=== PATIENT | female | born 1930 | race Caucasian/White ===

== ENCOUNTER 2017-08-15 16:51 | Emergency (ER) | payer MEDICARE, BC, MEDICAID ==
[2017-08-15 17:40] VITALS: BP 123/90
[2017-08-15] MEDS ORDERED: Amoxicillin/Clavulanate K 875-125 MG Tab PO ONE (18:09)
--- NOTE | 2017-08-15 18:17 | EDM.PDOC ---
Scribed by Estefania Reza 08/15/17 [id number] for Jasvir Bradley MD ED HPI GENERAL MEDICAL PROBLEM - General Chief Complaint: ENT Problem Stated Complaint: [id number] FLU Time Seen by Provider: 08/15/17 17:28 Source of Information: Reports: Patient, RN, RN Notes Reviewed History Limitations: Reports: No Limitations - History of Present Illness INITIAL COMMENTS - FREE TEXT/NARRATIVE: Patient arrives to ER with complaint of sore throat on and off for several weeks. She denies any cough or fever. She was worried because her son and [id number] had the flu, but she does not feel that she has the same symptoms. Location: Reports: Head Quality: Reports: Ache Severity: Mild Improves with: Reports: None Worsens with: Reports: None Associated Symptoms: Reports: No Other Symptoms - Related Data Allergies Allergy/AdvReac Type Severity Reaction Status Date / Time No Known Allergies Allergy Verified 07/06/16 13:28 Home Meds: Home Meds Albuterol [Proair HFA] 1 puff INH BID 09/27/14 [History] Aspirin [Elizabeth Chewable Aspirin] 81 mg PO DAILY 09/27/14 [History] Budesonide/Formoterol Fumarate [Symbicort 80-4.5 Mcg Inhaler] 1 puff INH BID [History] Citalopram [Citalopram HBr] 20 mg PO DAILY 09/27/14 [History] Levothyroxine [Synthroid] 100 mcg PO DAILY 09/27/14 [History] Simvastatin [Simvastatin] 40 mg PO DAILY 09/27/14 [History] Multivitamin [Multi-Day Vitamins] 1 tab PO DAILY 03/15/15 [History] Allergy Medication DAILY 08/15/17 [History] Past Medical History HEENT History: Reports: Impaired Vision Other HEENT History: wears corrective lenses Cardiovascular History: Reports: High Cholesterol Respiratory History: Reports: COPD Psychiatric History: Reports: Anxiety Endocrine/Metabolic History: Reports: Hypothyroidism Oncologic (Cancer) History: Reports: None - Infectious Disease History Infectious Disease History: Reports: Measles, Mumps - Past Surgical History HEENT Surgical History: Reports: Eye Surgery Other HEENT Surgeries/Procedures: patient does not know name of procedure Female Surgical History: Reports: Hysterectomy Social & Family History - Family History Family Medical History: Noncontributory - Tobacco Use Smoking Status *Q: Former Smoker Years of Tobacco use: 15 Packs/Tins Daily: 1 Used Tobacco, but Quit: No Month Tobacco Last Used: june Second Hand Smoke Exposure: No - Caffeine Use Caffeine Use: Reports: Coffee - Alcohol Use Days Per Week of Alcohol Use: 0 - Recreational Drug Use Recreational Drug Use: No ED ROS ENT - Review of Systems Review Of Systems: ROS reveals no pertinent complaints other than HPI. ED EXAM, ENT - Physical Exam Exam: See Below Exam Limited By: No Limitations General Appearance: Alert, WD/WN, No Apparent Distress Eye Exam: Bilateral Eye: Normal Inspection Ears: Normal Canal, Hearing Loss (chronic/wears hearing aids.), TM Fluid (clear air fluid level bilaterally.) Nose: No Blood, Nasal Discharge (purulent), Injected Turbinates Mouth/Throat: Pharyngeal Erythema (mild.), Other (creamy post nasal drip.) Head: Atraumatic, Normocephalic Neck: Normal Inspection Respiratory/Chest: No Respiratory Distress, No Accessory Muscle Use, Decreased Breath Sounds. No: Rales, Rhonchi, Wheezing Cardiovascular: Regular Rate, Rhythm, No Edema Back: Normal Inspection Extremities: Normal Inspection Neurological: Alert, Oriented, No Motor/Sensory Deficits Psychiatric: Anxious Skin: Warm, Dry, Intact, Normal Color, No Rash Course - Vital Signs Last Recorded V/S: Last Vital Signs Temp 36.8 C 08/15/17 17:06 Pulse 74 08/15/17 17:06 Resp 18 08/15/17 17:06 BP 123/90 08/15/17 17:06 Pulse Ox 97 08/15/17 17:06 - Orders/Labs/Meds Orders: Active Orders 24 hr Category Date Time Status CULTURE STREP A CONFIRMATION [RM] Stat Lab 08/15/17 17:10 Results STREP SCRN A RAPID W CULT CONF [RM] Stat Lab 08/15/17 17:10 Results Labs: Rapid strep: Negative. Meds: Medications Discontinued Medications Generic Name Dose Route Start Last Admin Trade Name Freq PRN Reason Stop Dose Admin Amoxicillin/Clavulanate Potassium 1 tab 08/15/17 18:09 08/15/17 18:13 Augmentin 875 Mg/125 Mg PO 08/15/17 18:10 1 tab ONETIME ONE Administration Departure - Departure Time of Disposition: 18:08 Disposition: Home, Self-Care 01 Condition: Good Clinical Impression: Sinusitis Qualifiers: Sinusitis location: unspecified location Chronicity: acute Recurrence: non- recurrent Qualified Code(s): J01.90 - Acute sinusitis, unspecified - Discharge Information Instructions: Sinusitis, Adult, [id number] Forms: ED Department Discharge Additional Instructions: RX: Augmentin 875mg. Frequent salt water gargles. Follow up in the clinic in the next 3 to 4 days. - My Orders Last 24 Hours: My Active Orders 08/15/17 17:10 CULTURE STREP A CONFIRMATION [RM] Stat STREP SCRN A RAPID W CULT CONF [RM] Stat - Assessment/Plan Last 24 Hours: My Active Orders 08/15/17 17:10 CULTURE STREP A CONFIRMATION [RM] Stat STREP SCRN A RAPID W CULT CONF [RM] Stat I have read and agree with the documentation that has been completed regarding this visit. By signing this record, I attest that the documentation was completed in my physical presence and is an accurate record of the encounter.
== END 2017-08-15 18:19 | disposition home or self-care (01) ==
LOC: DL.ED 16:51
DX: J01.90 Acute sinusitis, unspecified (principal); E78.00 Pure hypercholesterolemia, unspecified; E03.9 Hypothyroidism, unspecified; F41.9 Anxiety disorder, unspecified; Z79.899 Other long term (current) drug therapy; Z87.891 Personal history of nicotine dependence; Z79.82 Long term (current) use of aspirin
CPT/HCPCS: 87081; 87430; 99283; A9270

== ENCOUNTER 2018-02-07 10:39 | Observation (INO) | payer MEDICARE, BC, MEDICAID ==
--- NOTE | 2018-02-07 10:38 | EDM.PDOC ---
ED HPI GENERAL MEDICAL PROBLEM - General Chief Complaint: Neuro Symptoms/Deficits Stated Complaint: IN BY AMBULANCE Time Seen by Provider: 02/07/18 10:33 Source of Information: Reports: Patient, EMS, Family (son), Old Records, RN, RN Notes Reviewed History Limitations: Reports: No Limitations - History of Present Illness INITIAL COMMENTS - FREE TEXT/NARRATIVE: Pt arrives from home by ambulance with report of "possible stroke". Pt awoke this morning feeling well. Just prior to arrival while talking on the phone to her son, she suddenly developed speech that was "slurred and garbled". The pt states she knew something was wrong, but was sure what. Pt's son states he immediately recognized the speech change, and called 911. Paramedics report that prior to arrival to the ER the pt's speech returned to normal. Pt denies any motor weakness, visual changes, difficulty swallowing, LOC, CP, or loss of bowel or bladder control. Onset: Today, Sudden Onset Date: 02/07/18 (Last known well time was approx. 10:00HRS this morning) Duration: Resolved Prior to Arrival Location: Reports: Other (speech) Severity: Severe Improves with: Reports: None Worsens with: Reports: None Associated Symptoms: Reports: No Other Symptoms - Related Data Allergies Allergy/AdvReac Type Severity Reaction Status Date / Time No Known Allergies Allergy Verified 02/07/18 11:18 Home Meds: Home Meds Albuterol [Proair HFA] 1 puff INH BID 09/27/14 [History] Aspirin [Elizabeth Chewable Aspirin] 81 mg PO DAILY 09/27/14 [History] Budesonide/Formoterol Fumarate [Symbicort 80-4.5 Mcg Inhaler] 1 puff INH BID [History] Citalopram [Citalopram HBr] 20 mg PO DAILY 09/27/14 [History] Levothyroxine [Synthroid] 100 mcg PO DAILY 09/27/14 [History] Simvastatin 40 mg PO DAILY 09/27/14 [History] Multivitamin [Multi-Day Vitamins] 1 tab PO DAILY 03/15/15 [History] Allergy Medication DAILY 08/15/17 [History] Past Medical History HEENT History: Reports: Impaired Vision Other HEENT History: wears corrective lenses Cardiovascular History: Reports: High Cholesterol Respiratory History: Reports: COPD Psychiatric History: Reports: Anxiety Endocrine/Metabolic History: Reports: Hypothyroidism Oncologic (Cancer) History: Reports: None - Infectious Disease History Infectious Disease History: Reports: Measles, Mumps - Past Surgical History HEENT Surgical History: Reports: Eye Surgery Other HEENT Surgeries/Procedures: patient does not know name of procedure Female Surgical History: Reports: Hysterectomy Social & Family History - Family History Family Medical History: Noncontributory - Caffeine Use Caffeine Use: Reports: Coffee - Living Situation & Occupation Living situation: Reports: , Alone Occupation: Retired ED ROS GENERAL - Review of Systems Review Of Systems: ROS reveals no pertinent complaints other than HPI. ED EXAM, NEURO - Physical Exam Exam: See Below Exam Limited By: No Limitations General Appearance: Alert, WD/WN, No Apparent Distress Eye Exam: Bilateral Eye: EOMI, Normal Inspection, PERRL Ears: Hearing Loss (chronic/stable) Nose: Normal Inspection, Normal Mucosa, No Blood Throat/Mouth: Normal Inspection, Normal Lips, Normal Teeth, Normal Gums, Normal Oropharynx, Normal Voice, No Airway Compromise Head Exam: Atraumatic, Normocephalic Neck: Normal Inspection, Supple, Non-Tender, Full Range of Motion. No: Carotid Bruit, Lymphadenopathy (L), Lymphadenopathy (R) Respiratory/Chest: No Respiratory Distress, Lungs Clear, Normal Breath Sounds, No Accessory Muscle Use, Chest Non-Tender Cardiovascular: Normal Peripheral Pulses, Regular Rate, Rhythm, No Edema, No Gallop, No JVD, No Murmur, No Rub GI/Abdominal: Normal Bowel Sounds, Soft, Non-Tender, No Distention. No: Guarding, Rigid, Rebound (Female) Exam: Deferred Rectal (Female) Exam: Deferred Neurological: Alert, Normal Mood/Affect, Normal Dorsiflexion, CN II-XII Intact, Normal Plantar Flexion, Normal Gait, No Motor/Sensory Deficits, Oriented x 3 Back Exam: Normal Inspection Extremities: Normal Inspection, Normal Range of Motion, Non-Tender, No Pedal Edema, Normal Capillary Refill Psychiatric: Anxious Skin Exam: Warm, Dry, Intact, Normal Color, No Rash EKG INTERPRETATION EKG Date: 02/07/18 Time: 10:44 Rhythm: Other (SR) Rate (Beats/Min): 70 [place]: Normal P-Wave: Present QRS: Wide (nonspecific IVCD) ST-T: Normal QT: Normal Comparison: NA - No Prior EKG EKG Interpretation Comments: No acute ischemic changes. Course - Vital Signs Last Recorded V/S: Last Vital Signs Temp 36.6 C 02/07/18 10:39 Pulse 79 02/07/18 10:39 Resp 15 02/07/18 10:39 BP 178/69 H 02/07/18 10:39 Pulse Ox 100 02/07/18 10:39 - Orders/Labs/Meds Orders: Active Orders 24 hr Category Date Time Status Blood Glucose Check, Bedside [] ONETIME Care 02/07/18 10:40 Active EKG 12 Lead [EKG Documentation Completion] [RC] STAT Care 02/07/18 10:39 Active Peripheral IV Care [RC] . DIRECTED Care 02/07/18 10:40 Active TSH ULTRASENSITIVE [CHEM] Stat Lab 02/07/18 10:33 Received UA W/MICROSCOPIC [URIN] Stat Lab 02/07/18 10:39 Ordered Sodium Chloride 0.9% [Saline Flush] Med 02/07/18 10:40 Active 10 ml FLUSH ASDIRECTED PRN Peripheral IV Insertion Adult [OM.PC] Stat Oth 02/07/18 10:39 Ordered Medication Orders Sodium Chloride (Saline Flush) 10 ml FLUSH ASDIRECTED PRN PRN Reason: Keep Vein Open Last Admin: 02/07/18 10:35 Dose: 10 ml Labs: Laboratory Tests 02/07/18 02/07/18 02/07/18 Range/Units 10:33 10:33 10:33 WBC 5.4 (5.0-10.0) 10^3/uL RBC 3.99 L (4.2-5.4) 10^6/uL Hgb 12.7 (12.0-16.0) g/dL Hct 38.3 (37.0-47.0) % MCV 96.0 D (80-100) fL MCH 31.8 (27.0-34.0) pg MCHC 33.2 (33.0-35.0) g/dL Plt Count 205 (150-450) 10^3/uL Neut % (Auto) 47.0 (42.2-75.2) % Lymph % (Auto) 40.7 (20.5-50.1) % [place] % (Auto) 9.9 H (2-8) % Eos % (Auto) 1.8 (1.0-3.0) % Baso % (Auto) 0.6 (0.0-1.0) % PT 9.2 (9.0-12.0) SEC INR 0.9 (0.9-1.2) APTT 23.0 (22.0-34.0) SEC Sodium 135 (135-145) mmol/L Potassium 3.8 (3.6-5.0) mmol/L Chloride 99 L (101-111) mmol/L Carbon Dioxide 26.0 (21.0-31.0) mmol/L Anion Gap 13.8 BUN 26 H (7-18) mg/dL Creatinine 1.1 (0.6-1.3) mg/dL Est Cr Clr Drug Dosing 31.81 mL/min Estimated GFR (MDRD) 47 BUN/Creatinine Ratio 23.63 Glucose 100 (74-105) mg/dL POC Glucose (83-110) mg/dl Calcium 8.9 (8.4-10.2) mg/dl Magnesium 2.1 (1.8-2.5) mg/dL Total Bilirubin 1.0 (0.2-1.0) mg/dL AST 23 (10-42) IU/L ALT 14 (10-60) IU/L Alkaline Phosphatase 65 (42-121) IU/L Troponin I < 0.02 (0.00-0.02) ng/ml Total Protein 7.6 (6.7-8.2) g/dl Albumin 4.2 (3.2-5.5) g/dl Globulin 3.4 Albumin/Globulin Ratio 1.24 02/07/18 Range/Units 10:46 WBC (5.0-10.0) 10^3/uL RBC (4.2-5.4) 10^6/uL Hgb (12.0-16.0) g/dL Hct (37.0-47.0) % MCV (80-100) fL MCH (27.0-34.0) pg MCHC (33.0-35.0) g/dL Plt Count (150-450) 10^3/uL Neut % (Auto) (42.2-75.2) % Lymph % (Auto) (20.5-50.1) % [place] % (Auto) (2-8) % Eos % (Auto) (1.0-3.0) % Baso % (Auto) (0.0-1.0) % PT (9.0-12.0) SEC INR (0.9-1.2) APTT (22.0-34.0) SEC Sodium (135-145) mmol/L Potassium (3.6-5.0) mmol/L Chloride (101-111) mmol/L Carbon Dioxide (21.0-31.0) mmol/L Anion Gap BUN (7-18) mg/dL Creatinine (0.6-1.3) mg/dL Est Cr Clr Drug Dosing mL/min Estimated GFR (MDRD) BUN/Creatinine Ratio Glucose (74-105) mg/dL POC Glucose 100 (83-110) mg/dl Calcium (8.4-10.2) mg/dl Magnesium (1.8-2.5) mg/dL Total Bilirubin (0.2-1.0) mg/dL AST (10-42) IU/L ALT (10-60) IU/L Alkaline Phosphatase (42-121) IU/L Troponin I (0.00-0.02) ng/ml Total Protein (6.7-8.2) g/dl Albumin (3.2-5.5) g/dl Globulin Albumin/Globulin Ratio Meds: Medications Generic Name Dose Route Start Last Admin Trade Name Freq PRN Reason Stop Dose Admin Sodium Chloride 10 ml 02/07/18 10:40 02/07/18 10:35 Saline Flush FLUSH 10 ml ASDIRECTED PRN Administration Keep Vein Open Discontinued Medications Generic Name Dose Route Start Last Admin Trade Name Freq PRN Reason Stop Dose Admin Aspirin 324 mg 02/07/18 10:55 02/07/18 11:20 Aspirin PO 02/07/18 10:56 324 mg ONETIME ONE Administration - Radiology Interpretation Free Text/Narrative:: CT Head w/out contrast: no I.C. hemorrhage, no acute findings, chronic/stable appearing microvascular changes per Rad. report. Departure - Departure Time of Disposition: 11:42 (admitted to Dr. Serrato) Disposition: Admitted As Inpatient 65 Condition: Fair Clinical Impression: Transient ischemic attack (TIA) - Discharge Information Forms: ED Department Discharge - My Orders Last 24 Hours: My Active Orders 02/07/18 10:33 TSH ULTRASENSITIVE [CHEM] Stat 02/07/18 10:39 EKG 12 Lead [EKG Documentation Completion] [RC] STAT UA W/MICROSCOPIC [URIN] Stat Peripheral IV Insertion Adult [OM.PC] Stat 02/07/18 10:40 Blood Glucose Check, Bedside [RC] ONETIME Peripheral IV Care [RC] . DIRECTED Sodium Chloride 0.9% [Saline Flush] 10 ml FLUSH ASDIRECTED PRN - Assessment/Plan Last 24 Hours: My Active Orders 02/07/18 10:33 TSH ULTRASENSITIVE [CHEM] Stat 02/07/18 10:39 EKG 12 Lead [EKG Documentation Completion] [RC] STAT UA W/MICROSCOPIC [URIN] Stat Peripheral IV Insertion Adult [OM.PC] Stat 02/07/18 10:40 Blood Glucose Check, Bedside [RC] ONETIME Peripheral IV Care [RC] . DIRECTED Sodium Chloride 0.9% [Saline Flush] 10 ml FLUSH ASDIRECTED PRN
[2018-02-07] MEDS ORDERED: Sodium Chloride 0.9% 10 ML Syringe FLUSH PRN ×2 (10:40→12:48)
[2018-02-07] MEDS ORDERED: Aspirin 81 MG Tab.Chew PO ONE (10:55)
--- NOTE | 2018-02-07 11:14 | CT ---
CLINICAL HISTORY: 87-year-old female with slurred speech (sudden onset "word salad" for 15-20 minutes ) that has resolved. SCAN TECHNIQUE: Volume acquisition of data from an emergency unenhanced CT scan of the head and brain obtained while the patient was lying supine on the Siemens multislice CT scanner [place], [place]. (This report dictated and sent to the emergency department at 1050 hour s) All data archived in the PACS system for storage, reformatting and study. INTERPRETATION: 1. 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 2. Symmetric mild age-appropriate atrophy with underlying mirror-image normal ventricular system. Phy siologic midline pineal and symmetric choroid plexus calcifications. 3. Multiple small areas of decreased attenuation scattered throughout the periventricular white matte r of both cerebral hemispheres. 4. No new supratentorial or posterior fossa mass lesion since [address] scan of the head. 5. No sign of acute intracerebral/intraventricular/subarachnoid bleed. 6. Cerebellum and brainstem unremarkable for age. No cerebellopontine angle mass lesion. 7. Round retention cysts maxillary antra bilaterally. Asymmetric dense sclerosis mastoid sinus on the left. No sign of foreign body, fracture or tumor. No pathologic air-fluid levels identified in the s inuses. CONCLUSION: Chronic microvascular ischemic changes and age-appropriate atrophy. No sign of intracrani al bleed.
[2018-02-07 11:20] LABS: ANION GAP 13.8; CHLORIDE,CL 99 mmol/L (101-111); SODIUM,NA 135 mmol/L (135-145)
[2018-02-07] MEDS ORDERED: Clopidogrel 75 MG Tab PO SCH (12:45)
[2018-02-07] MEDS ORDERED: Zolpidem 5 MG Tab PO PRN (12:48)
--- NOTE | 2018-02-07 13:20 | PCM.HP ---
H&P History of Present Illness - General Date of Service: 02/07/18 Admit Problem/Dx: Admission Diagnosis/Problem Admission Diagnosis/Problem CVA, Cerebrovascular accident Source of Information: Patient, Family (2 sons at bedside, 1 daughter on the phone), Provider (ER) - History of Present Illness Initial Comments - Free Text/Narative: Patient is an 87-year-old lady with a history of depression, hypothyroidism, dyslipidemia. The patient has been living independently, driving. Yesterday the patient apparently had a good day without significant abnormalities. Today while she was on the phone and talking to one of the sons she was noted to have sudden onset of garbled speech, slurred speech This happened around 9.30 the morning. The son notified the EMS services and what the patient was brought into the emergency room. In the meantime her speech appeared improved but not back to normal. She is able to communicate, denies headache. She denies chest pain, palpitation. No apparent seizure activity, loss of bowel or bladder function. No associated syncope. There was no motor deficit noted. It does appear that the speech is improved since the initial onset but clearly not back to baseline. - Related Data Allergies/Adverse Reactions: Allergies Allergy/AdvReac Type Severity Reaction Status Date / Time No Known Allergies Allergy Verified 02/07/18 12:26 Home Medications: Home Meds Albuterol [Proair HFA] 2 puff INH BID 09/27/14 [History] Aspirin [Elizabeth Chewable Aspirin] 81 mg PO DAILY 09/27/14 [History] Budesonide/Formoterol Fumarate [Symbicort 80-4.5 Mcg Inhaler] 1 puff INH BID [History] Citalopram [Citalopram HBr] 20 mg PO DAILY 09/27/14 [History] Levothyroxine [Synthroid] 88 mcg PO DAILY 09/27/14 [History] Simvastatin 40 mg PO DAILY 09/27/14 [History] Multivitamin [Multi-Day Vitamins] 1 tab PO DAILY 03/15/15 [History] Allergy Medication 10 mg PO DAILY 08/15/17 [History] Alendronate Sodium 70 mg PO .WEEKLY 02/07/18 [History] Past Medical History HEENT History: Reports: Impaired Vision Other HEENT History: wears corrective lenses Cardiovascular History: Reports: High Cholesterol Respiratory History: Reports: COPD Gastrointestinal History: Reports: None Genitourinary History: Reports: None 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 History: Reports: Musculoskeletal History: Reports: Arthritis Neurological History: Reports: None Psychiatric History: Reports: Anxiety Endocrine/Metabolic History: Reports: Hypothyroidism Hematologic History: Reports: None Immunologic History: Reports: None Oncologic (Cancer) History: Reports: None Dermatologic History: Reports: None - Infectious Disease History Infectious Disease History: Reports: Measles, Mumps - Past Surgical History HEENT Surgical History: Reports: Eye Surgery, Tonsillectomy Other HEENT Surgeries/Procedures: patient does not know name of procedure Cardiovascular Surgical History: Reports: None Respiratory Surgical History: Reports: None GI Surgical History: Reports: None Female Surgical History: Reports: Hysterectomy Endocrine Surgical History: Reports: None Neurological Surgical History: Reports: None Musculoskeletal Surgical History: Reports: None Social & Family History - Family History Family Medical History: Noncontributory - Tobacco Use Smoking Status *Q: Former Smoker Used Tobacco, but Quit: Yes Month/Year Tobacco Last Used: may, 1993 Second Hand Smoke Exposure: No - Caffeine Use Caffeine Use: Reports: Coffee - Recreational Drug Use Recreational Drug Use: No - Living Situation & Occupation Living situation: Reports: , Alone Occupation: Retired H&P Review of Systems - Review of Systems: Review Of Systems: See Below General: Denies: Fever, Chills Pulmonary: Denies: Shortness of Breath, Wheezing Cardiovascular: Denies: Chest Pain Gastrointestinal: Denies: Abdominal Pain Genitourinary: Denies: Dysuria Psychiatric: Reports: Anxiety. Denies: Confusion Neurological: Reports: Trouble Speaking, Change in Speech. Denies: Dizziness, Headache, Numbness, Paresthesia, Seizure, Syncope, Difficulty Walking, Weakness , Gait Disturbance Exam - Exam Exam: See Below - Vital Signs Vital Signs: Last Vital Signs Temp 36.8 C 02/07/18 12:29 Pulse 71 02/07/18 12:29 Resp 20 02/07/18 12:29 BP 148/85 H 02/07/18 12:29 Pulse Ox 100 02/07/18 12:29 Weight: 71.94 kg - Exam General: Alert, Oriented HEENT: EOMI. No: Hearing Intact (Baseline hard of hearing) Neck: Supple, Full Range of Motion. No: Carotid Bruit, JVD Lungs: Clear to Auscultation, Normal Respiratory Effort Cardiovascular: Regular Rate, Regular Rhythm GI/Abdominal Exam: Normal Bowel Sounds, Soft, Non-Tender Extremities: No: Pedal Edema Skin: Warm, Dry Neurological: Cranial Nerves Intact, Strength Equal Bilateral, Normal Gait, Normal Tone, Sensation Intact. No: Normal Speech (Appear to have overt finding difficulty but able to express herself at a slow rate), Focal Deficit, Abnormal Gait Neuro Extensive - Mental Status: Alert, Oriented x3, Normal Mood/Affect Psychiatric: Alert, Normal Affect, Normal Mood - Patient Data Lab Results Last 24 hrs: Laboratory Results - last 24 hr 02/07/18 02/07/18 02/07/18 Range/Units 10:33 10:33 10:33 WBC 5.4 (5.0-10.0) 10^3/uL RBC 3.99 L (4.2-5.4) 10^6/uL Hgb 12.7 (12.0-16.0) g/dL Hct 38.3 (37.0-47.0) % MCV 96.0 D (80-100) fL MCH 31.8 (27.0-34.0) pg MCHC 33.2 (33.0-35.0) g/dL Plt Count 205 (150-450) 10^3/uL Neut % (Auto) 47.0 (42.2-75.2) % Lymph % (Auto) 40.7 (20.5-50.1) % [place] % (Auto) 9.9 H (2-8) % Eos % (Auto) 1.8 (1.0-3.0) % Baso % (Auto) 0.6 (0.0-1.0) % PT 9.2 (9.0-12.0) SEC INR 0.9 (0.9-1.2) APTT 23.0 (22.0-34.0) SEC Sodium 135 (135-145) mmol/L Potassium 3.8 (3.6-5.0) mmol/L Chloride 99 L (101-111) mmol/L Carbon Dioxide 26.0 (21.0-31.0) mmol/L Anion Gap 13.8 BUN 26 H (7-18) mg/dL Creatinine 1.1 (0.6-1.3) mg/dL Est Cr Clr Drug Dosing 31.81 mL/min Estimated GFR (MDRD) 47 BUN/Creatinine Ratio 23.63 Glucose 100 (74-105) mg/dL POC Glucose (83-110) mg/dl Calcium 8.9 (8.4-10.2) mg/dl Magnesium 2.1 (1.8-2.5) mg/dL Total Bilirubin 1.0 (0.2-1.0) mg/dL AST 23 (10-42) IU/L ALT 14 (10-60) IU/L Alkaline Phosphatase 65 (42-121) IU/L Troponin I < 0.02 (0.00-0.02) ng/ml Total Protein 7.6 (6.7-8.2) g/dl Albumin 4.2 (3.2-5.5) g/dl Globulin 3.4 Albumin/Globulin Ratio 1.24 TSH, Ultra Sensitive (0.45-5.33) uIu/mL 02/07/18 02/07/18 Range/Units 10:33 10:46 WBC (5.0-10.0) 10^3/uL RBC (4.2-5.4) 10^6/uL Hgb (12.0-16.0) g/dL Hct (37.0-47.0) % MCV (80-100) fL MCH (27.0-34.0) pg MCHC (33.0-35.0) g/dL Plt Count (150-450) 10^3/uL Neut % (Auto) (42.2-75.2) % Lymph % (Auto) (20.5-50.1) % [place] % (Auto) (2-8) % Eos % (Auto) (1.0-3.0) % Baso % (Auto) (0.0-1.0) % PT (9.0-12.0) SEC INR (0.9-1.2) APTT (22.0-34.0) SEC Sodium (135-145) mmol/L Potassium (3.6-5.0) mmol/L Chloride (101-111) mmol/L Carbon Dioxide (21.0-31.0) mmol/L Anion Gap BUN (7-18) mg/dL Creatinine (0.6-1.3) mg/dL Est Cr Clr Drug Dosing mL/min Estimated GFR (MDRD) BUN/Creatinine Ratio Glucose (74-105) mg/dL POC Glucose 100 (83-110) mg/dl Calcium (8.4-10.2) mg/dl Magnesium (1.8-2.5) mg/dL Total Bilirubin (0.2-1.0) mg/dL AST (10-42) IU/L ALT (10-60) IU/L Alkaline Phosphatase (42-121) IU/L Troponin I (0.00-0.02) ng/ml Total Protein (6.7-8.2) g/dl Albumin (3.2-5.5) g/dl Globulin Albumin/Globulin Ratio TSH, Ultra Sensitive 0.31 L (0.45-5.33) uIu/mL Result Diagrams: 02/07/18 10:33 02/07/18 10:33 EKG INTERPRETATION EKG Date: 02/07/18 Rhythm: NSR EKG Interpretation Comments: telemetry - Problem List (1) Acute CVA (cerebrovascular accident) SNOMED Code(s): 249096752, 578846346 ICD Code: I63.9 - CEREBRAL INFARCTION, UNSPECIFIED Status: Acute Current Visit: Yes (2) Dyslipidemia SNOMED Code(s): 805416565 ICD Code: E78.5 - HYPERLIPIDEMIA, UNSPECIFIED Status: Acute Current Visit : Yes (3) Hypothyroidism SNOMED Code(s): 87879198 ICD Code: E03.9 - HYPOTHYROIDISM, UNSPECIFIED Status: Acute Current Visit : Yes Problem List Initiated/Reviewed/Updated: Yes Orders Last 24hrs: Active Orders 24 hr Category Date Time Status Patient Status [ADT] Routine ADT 02/07/18 12:49 Ordered Blood Glucose Check, Bedside [RC] ONETIME Care 02/07/18 10:40 Active EKG 12 Lead [EKG Documentation Completion] [RC] STAT Care 02/07/18 10:39 Active Neuro Check [RC] Q1HR Care 02/07/18 13:12 Active Oxygen Therapy [RC] PRN Care 02/07/18 12:49 Ordered Peripheral IV Care [RC] . DIRECTED Care 02/07/18 10:40 Active Telemetry Monitoring [Cardiac Monitoring] [RC] . Care 02/07/18 12:32 Ordered DIRECTED Up With Assistance [RC] ASDIRECTED Care 02/07/18 12:48 Ordered VTE/DVT Education [RC] PER UNIT ROUTINE Care 02/07/18 12:49 Ordered Vital Signs [RC] Q4H Care 02/07/18 12:49 Ordered OT Evaluation and Treatment [CONS] Routine Cons 02/07/18 12:34 Ordered PT Evaluation and Treatment [CONS] Routine Cons 02/07/18 12:34 Ordered Regular Diet [DIET] Diet 02/07/18 Dinner Ordered Brain wo Cont [MR] Routine Exams 02/07/18 12:43 Ordered Carotid Comp [US] Routine Exams 02/07/18 12:33 Ordered Echo Comp wo Cont [US] Routine Exams 02/07/18 12:32 Ordered BASIC METABOLIC PANEL,BMP [CHEM] AM Lab 02/08/18 05:15 Ordered CBC WITH AUTO DIFF [HEME] AM Lab 02/08/18 05:15 Ordered Albuterol [Proventil HFA] Med 02/07/18 21:00 Ordered 2 puff INH BID Budesonide/Formoterol Fumarate [Symbicort 80-4.5 Mcg Med 02/07/18 21:00 Ordered Inhaler] 1 puff INH BID Citalopram [Celexa] Med 02/08/18 09:00 Ordered 20 mg PO DAILY Clopidogrel [Plavix] Med 02/07/18 12:45 Ordered 75 mg PO DAILY Heparin Sodium Med 02/07/18 14:00 Ordered 5,000 units SUBCUT Q8HR Levothyroxine [Synthroid] Med 02/08/18 09:00 Ordered 88 mcg PO DAILY Loratadine [Claritin] Med 02/08/18 09:00 Ordered 10 mg PO DAILY Multivitamin [Multi-Day Vitamins] Med 02/08/18 09:00 Ordered 1 tab PO DAILY Simvastatin [Zocor] Med 02/08/18 09:00 Ordered 40 mg PO DAILY Sodium Chloride 0.9% [Saline Flush] Med 02/07/18 10:40 Active 10 ml FLUSH ASDIRECTED PRN Sodium Chloride 0.9% [Saline Flush] Med 02/07/18 12:48 Ordered 10 ml FLUSH ASDIRECTED PRN Zolpidem [Ambien] Med 02/07/18 12:48 Ordered 5 mg PO BEDTIME PRN Antiembolic Hose [OM.PC] Per Unit Routine Oth 02/07/18 12:50 Ordered Peripheral IV Insertion Adult [OM.PC] Stat Oth 02/07/18 10:39 Ordered Saline Lock Insert [OM.PC] Routine Oth 02/07/18 12:48 Ordered Resuscitation Status Routine Resus Stat 02/07/18 12:48 Ordered Medication Orders Albuterol (Proventil Hfa) gm INH BID [facility] Citalopram Hydrobromide (Celexa) 20 mg PO DAILY [facility] Clopidogrel Bisulfate (Plavix) 75 mg PO DAILY [facility] Heparin Sodium (Porcine) (Heparin Sodium) 5,000 units SUBCUT Q8HR [facility] Levothyroxine Sodium (Synthroid) 88 mcg PO ACBRK [facility] Loratadine (Claritin) 10 mg PO DAILY [facility] Multivitamins (Thera) 1 each PO DAILY [facility] Non-Formulary Medication (Budesonide/Formoterol Fumarate [Symbicort 80-4.5 Mcg Inhaler]) 1 puff INH BID [facility] Simvastatin (Zocor) 40 mg PO BEDTIME [facility] Sodium Chloride (Saline Flush) 10 ml FLUSH ASDIRECTED PRN PRN Reason: Keep Vein Open Last Admin: 02/07/18 10:35 Dose: 10 ml Sodium Chloride (Saline Flush) 10 ml FLUSH ASDIRECTED PRN PRN Reason: Keep Vein Open Zolpidem Tartrate (Ambien) 5 mg PO BEDTIME PRN PRN Reason: Sleep Assessment/Plan Comment:: The patient is a very active and high functioning 87-year-old lady who has been living independently. The patient was noted to have sudden onset of garbled speech. Initially the speech was completely garbled and the son could not understand, within about 30 minutes to speech has improved but did not return back to baseline. There was no associated motor weakness noted in the emergency room or by EMS. Acute CVA CT of the head showed no bleeding The patient Likely has an acute ischemic stroke The patient has no motor deficit, able to talk and swallow, able to make herself understood. At this point I believe the risk of using TPA is higher than its potential benefit. Will obtain MRI of the brain Monitor the patient on telemetry q1h neuro checks The patient will need further evaluation with echocardiogram, carotid imaging. This is currently not available here. I have called the clinic and a carotid ultrasound can be performed tomorrow afternoon there if the patient is discharged. For an echocardiogram she will have to travel to [place]. For neurology consultation the patient will have to travel to [place]. I discussed this with the patient's daughter. We discussed the options of transferring to [place] from hospital to hospital versus performing the above studies as an outpatient. The decision was to monitor the patient closely overnight. If she is deteriorating consider TPA and transferred to [place]. Otherwise to do the workup and follow up as outpatient. I will change the patient's aspirin to Plavix for secondary prevention. Continue statin. Follow fasting lipid as out pt. Monitor hypertension. Hypothyroidism tsh is slightly low Continue with Synthroid for now follow as out pt - repeat tsh when no acute events DVT prophylaxis with subcutaneous heparin Discussed with the 2 sons at bedside Discussed with the daughter over the phone
[2018-02-07] MEDS ORDERED: Heparin Sodium 5,000 Units/ML Vial SUBCUT SCH (14:00)
[2018-02-07 15:00] VITALS: BP 132/95
--- NOTE | 2018-02-07 15:14 | MR ---
CLINICAL HISTORY: 87-year-old 158 pound hospitalized female with recurrent speech difficulty (transie nt "word salad" 15-20 minutes this a.m.) who was noted on emergency CT exam to have "chronic microvas cular ischemic changes but no intracranial bleed". SCAN TECHNIQUE: Unenhanced sagittal T1 and multisequence (T1/T2/flair/diffusion weighted imaging) axi al scan obtained while the patient was lying supine on the [employer] magnet [place], [place]. All data archived in the PACS system for storage, reformatti ng and study. INTERPRETATION: 1. Multiple ischemic infarcts scattered throughout the periventricular white matter of both cerebral hemispheres (especially frontal and parietal lobes, bilaterally). No sign of cerebral edema or mass e ffect on the underlying sulci. 2. No supratentorial or posterior fossa mass lesion. No hydrocephalus. 3. No sign of acute intracerebral/intraventricular/subarachnoid bleed. No extracerebral/intracranial epidural or subdural hematoma. 4. Inflammatory changes paranasal and left mastoid sinuses. CONCLUSION: Findings demonstrated on emergency CT scan this a.m. confirmed. Multi-infarct ischemic disease. No intracranial bleed. Pansinusitis.
--- NOTE | 2018-02-07 17:01 | PCM.DCSUM1 ---
Discharge Summary - Hospital Course Free Text/Narrative:: The patient is a very active and high functioning 87-year-old lady who has been living independently. The patient was noted to have sudden onset of garbled speech. Initially the speech was completely garbled and the son could not understand, within about 30 minutes to speech has improved but did not return back to baseline. There was no associated motor weakness noted in the emergency room or by EMS. Acute CVA CT of the head showed no bleeding MRI showed b/l multiinfarct ischemic stroke The patient has no motor deficit, able to talk and swallow, able to make herself understood. At this point I believe the risk of using TPA is higher than its potential benefit. for the past 12 h. she was Monitored on telemetry - remains in [place] The patient will need further evaluation with echocardiogram, vascular imaging that is not available here. I discussed this with the patient and son. I have changed the patient's aspirin to Plavix for secondary prevention. Continue statin. Monitor hypertension. will transfer to [facility] for further studies Hypothyroidism tsh is slightly low Continue with Synthroid for now follow as out pt - repeat tsh when no acute events DVT prophylaxis with subcutaneous heparin d/w dr. Abarca Diagnosis: Stroke: Yes Modified Schleicher Scale: No Signif.Disability Despite Sympt.Able to Carry Out Usual Act./Duties Modified Schleicher Scale Score: 1 - Discharge Data Discharge Date: 02/07/18 Discharge Disposition: DC/Tfer to Acute Hospital 02 Condition: Stable - Discharge Diagnosis/Problem(s) (1) Acute CVA (cerebrovascular accident) SNOMED Code(s): 605080064, 838314815 ICD Code: I63.9 - CEREBRAL INFARCTION, UNSPECIFIED Status: Acute Current Visit: Yes (2) Dyslipidemia SNOMED Code(s): 915480590 ICD Code: E78.5 - HYPERLIPIDEMIA, UNSPECIFIED Status: Acute Current Visit : Yes (3) Hypothyroidism SNOMED Code(s): 13018836 ICD Code: E03.9 - HYPOTHYROIDISM, UNSPECIFIED Status: Acute Current Visit : Yes - Patient Summary/Data Consults: Consultations 02/07/18 12:34 OT Evaluation and Treatment [CONS] Routine PT Evaluation and Treatment [CONS] Routine - Patient Instructions Diet: Heart Healthy Diet Activity: As Tolerated - Discharge Plan *PRESCRIPTION DRUG MONITORING PROGRAM REVIEWED*: Not Applicable *COPY OF PRESCRIPTION DRUG MONITORING REPORT IN PATIENT BONNIE: Not Applicable Home Medications: Home Meds Albuterol [Proair HFA] 2 puff INH BID 09/27/14 [History] Budesonide/Formoterol Fumarate [Symbicort 80-4.5 Mcg Inhaler] 1 puff INH BID [History] Citalopram [Citalopram HBr] 20 mg PO DAILY 09/27/14 [History] Levothyroxine [Synthroid] 88 mcg PO DAILY 09/27/14 [History] Simvastatin 40 mg PO DAILY 09/27/14 [History] Multivitamin [Multi-Day Vitamins] 1 tab PO DAILY 03/15/15 [History] Allergy Medication 10 mg PO DAILY 08/15/17 [History] Alendronate Sodium 70 mg PO .WEEKLY 02/07/18 [History] Clopidogrel [Plavix] 75 mg PO DAILY tablet 02/07/18 [Rx] - Discharge Summary/Plan Comment DC Time >30 min.: Yes (d/w pt, son, dr. Abarca, arranging transfer) - General Info Date of Service: 02/07/18 Subjective Update: speech has improved no h/a no palpitation NS on tele Functional Status: Reports: Tolerating Diet - Review of Systems General: Denies: Weakness Pulmonary: Denies: Shortness of Breath Cardiovascular: Denies: Chest Pain Neurological: Reports: Change in Speech (improved). Denies: Dizziness, Headache , Weakness Psychiatric: Reports: Anxiety. Denies: Confusion - Patient Data Vitals - Most Recent: Last Vital Signs Temp 36.6 C 02/07/18 14:59 Pulse 80 02/07/18 14:59 Resp 20 02/07/18 14:59 BP 132/95 H 02/07/18 14:59 Pulse Ox 97 02/07/18 14:59 Weight - Most Recent: 71.94 kg I&O - Last 24 hours: Intake & Output 02/07/18 02/07/18 02/07/18 06:59 14:59 22:59 Intake Total 100 Output Total 350 50 Balance -250 -50 Lab Results - Last 24 hrs: Laboratory Results - last 24 hr 02/07/18 02/07/18 02/07/18 Range/Units 10:33 10:33 10:33 WBC 5.4 (5.0-10.0) 10^3/uL RBC 3.99 L (4.2-5.4) 10^6/uL Hgb 12.7 (12.0-16.0) g/dL Hct 38.3 (37.0-47.0) % MCV 96.0 D (80-100) fL MCH 31.8 (27.0-34.0) pg MCHC 33.2 (33.0-35.0) g/dL Plt Count 205 (150-450) 10^3/uL Neut % (Auto) 47.0 (42.2-75.2) % Lymph % (Auto) 40.7 (20.5-50.1) % [place] % (Auto) 9.9 H (2-8) % Eos % (Auto) 1.8 (1.0-3.0) % Baso % (Auto) 0.6 (0.0-1.0) % PT 9.2 (9.0-12.0) SEC INR 0.9 (0.9-1.2) APTT 23.0 (22.0-34.0) SEC Sodium 135 (135-145) mmol/L Potassium 3.8 (3.6-5.0) mmol/L Chloride 99 L (101-111) mmol/L Carbon Dioxide 26.0 (21.0-31.0) mmol/L Anion Gap 13.8 BUN 26 H (7-18) mg/dL Creatinine 1.1 (0.6-1.3) mg/dL Est Cr Clr Drug Dosing 31.81 mL/min Estimated GFR (MDRD) 47 BUN/Creatinine Ratio 23.63 Glucose 100 (74-105) mg/dL POC Glucose (83-110) mg/dl Calcium 8.9 (8.4-10.2) mg/dl Magnesium 2.1 (1.8-2.5) mg/dL Total Bilirubin 1.0 (0.2-1.0) mg/dL AST 23 (10-42) IU/L ALT 14 (10-60) IU/L Alkaline Phosphatase 65 (42-121) IU/L Troponin I < 0.02 (0.00-0.02) ng/ml Total Protein 7.6 (6.7-8.2) g/dl Albumin 4.2 (3.2-5.5) g/dl Globulin 3.4 Albumin/Globulin Ratio 1.24 TSH, Ultra Sensitive (0.45-5.33) uIu/mL 02/07/18 02/07/18 Range/Units 10:33 10:46 WBC (5.0-10.0) 10^3/uL RBC (4.2-5.4) 10^6/uL Hgb (12.0-16.0) g/dL Hct (37.0-47.0) % MCV (80-100) fL MCH (27.0-34.0) pg MCHC (33.0-35.0) g/dL Plt Count (150-450) 10^3/uL Neut % (Auto) (42.2-75.2) % Lymph % (Auto) (20.5-50.1) % [place] % (Auto) (2-8) % Eos % (Auto) (1.0-3.0) % Baso % (Auto) (0.0-1.0) % PT (9.0-12.0) SEC INR (0.9-1.2) APTT (22.0-34.0) SEC Sodium (135-145) mmol/L Potassium (3.6-5.0) mmol/L Chloride (101-111) mmol/L Carbon Dioxide (21.0-31.0) mmol/L Anion Gap BUN (7-18) mg/dL Creatinine (0.6-1.3) mg/dL Est Cr Clr Drug Dosing mL/min Estimated GFR (MDRD) BUN/Creatinine Ratio Glucose (74-105) mg/dL POC Glucose 100 (83-110) mg/dl Calcium (8.4-10.2) mg/dl Magnesium (1.8-2.5) mg/dL Total Bilirubin (0.2-1.0) mg/dL AST (10-42) IU/L ALT (10-60) IU/L Alkaline Phosphatase (42-121) IU/L Troponin I (0.00-0.02) ng/ml Total Protein (6.7-8.2) g/dl Albumin (3.2-5.5) g/dl Globulin Albumin/Globulin Ratio TSH, Ultra Sensitive 0.31 L (0.45-5.33) uIu/mL Med Orders - Current: Current Medications Albuterol (Proventil Hfa) 0 gm INH BID [facility] Citalopram Hydrobromide (Celexa) 20 mg PO DAILY [facility] Clopidogrel Bisulfate (Plavix) 75 mg PO DAILY [facility] Last Admin: 02/07/18 13:35 Dose: 75 mg Heparin Sodium (Porcine) (Heparin Sodium) 5,000 units SUBCUT Q8HR [facility] Last Admin: 02/07/18 13:46 Dose: 5,000 units Levothyroxine Sodium (Synthroid) 88 mcg PO ACBRK [facility] Loratadine (Claritin) 10 mg PO DAILY [facility] Multivitamins (Thera) 1 each PO DAILY [facility] Non-Formulary Medication (Budesonide/Formoterol Fumarate [Symbicort 80-4.5 Mcg Inhaler]) 1 puff INH BID [facility] Simvastatin (Zocor) 40 mg PO BEDTIME [facility] Sodium Chloride (Saline Flush) 10 ml FLUSH ASDIRECTED PRN PRN Reason: Keep Vein Open Last Admin: 02/07/18 10:35 Dose: 10 ml Sodium Chloride (Saline Flush) 10 ml FLUSH ASDIRECTED PRN PRN Reason: Keep Vein Open Zolpidem Tartrate (Ambien) 5 mg PO BEDTIME PRN PRN Reason: Sleep Discontinued Medications Aspirin (Aspirin) 324 mg PO ONETIME ONE Stop: 02/07/18 10:56 Last Admin: 02/07/18 11:20 Dose: 324 mg - Exam General: Reports: Alert, Oriented Neck: Reports: Supple Lungs: Reports: Clear to Auscultation, Normal Respiratory Effort Cardiovascular: Reports: Regular Rate, Regular Rhythm GI/Abdominal Exam: Normal Bowel Sounds, Soft, Non-Tender Extremities: No Pedal Edema Skin: Reports: Warm, Dry Neurological: Reports: No New Focal Deficit, Other (fluent speech) Psy/Mental Status: Reports: Anxious
[2018-02-07] MEDS ORDERED: Non-Formulary Medication 1 Each (Budesonide/Formoterol Fumarate [Symbicort 80-4.5 Mcg Inha INH SCH (21:00)
[2018-02-07] MEDS ORDERED: Albuterol 6.7 GM Inhaler INH SCH (21:00)
[2018-02-08] MEDS ORDERED: Levothyroxine 88 MCG Tab PO SCH (06:00)
[2018-02-08] MEDS ORDERED: Multivitamins,Therapeutic Tab PO SCH (09:00)
[2018-02-08] MEDS ORDERED: Loratadine 10 MG Tab PO SCH (09:00)
[2018-02-08] MEDS ORDERED: Citalopram 20 MG Tab PO SCH (09:00)
[2018-02-08] MEDS ORDERED: Simvastatin 40 MG Tab PO SCH (21:00)
== END 2018-02-07 17:37 ==
LOC: DL.ED 10:39 → UNDOADMOB 11:40 → DL.MS 11:40
PROVIDERS: ADMIT Internal Medicine; ATTEND Internal Medicine
DX: I63.9 Cerebral infarction, unspecified (principal); E78.5 Hyperlipidemia, unspecified; E03.9 Hypothyroidism, unspecified; J44.9 Chronic obstructive pulmonary disease, unspecified; M19.90 Unspecified osteoarthritis, unspecified site; Z79.02 Long term (current) use of antithrombotics/antiplatelets; Z79.899 Other long term (current) drug therapy; Z87.891 Personal history of nicotine dependence
CPT/HCPCS: 36415; 70450; 70551; 80053; 82962; 83735; 84443; 84484; 85025; 85610; 85730; 93005; 93010; 96372; 99285; A9270; G0378; J1644; J7050; 99284

== ENCOUNTER 2018-09-09 13:08 | Observation (INO) | payer MEDICARE, BC ==
[2018-09-09] MEDS ORDERED: Sodium Chloride 0.9% 10 ML Syringe FLUSH PRN ×2 (14:28→17:05)
[2018-09-09 14:52] LABS: ANION GAP 16.8
--- NOTE | 2018-09-09 15:17 | EDM.PDOC ---
Scribed by Estefania Reza 09/09/18 [id number] for Leann Bradley MD ED HPI GENERAL MEDICAL PROBLEM - General Chief Complaint: Respiratory Problem Stated Complaint: COUGHING WITH DIZZINESS Time Seen by Provider: 09/09/18 13:30 Source of Information: Reports: Patient, RN, RN Notes Reviewed History Limitations: Reports: No Limitations - History of Present Illness INITIAL COMMENTS - FREE TEXT/NARRATIVE: Patient presents to ER with complaint of cough for several days. She coughed so hard that she gets dizzy. Patient thinks this is related to her blood thinners. Denies fever, chills, shortness of breath, chest pain, or edema. Onset: Gradual Duration: Constant Location: Reports: Chest, Other (Throat) Quality: Reports: Other (Denies pain) Severity: Moderate Improves with: Reports: None Worsens with: Reports: None Associated Symptoms: Reports: No Other Symptoms - Related Data Allergies Allergy/AdvReac Type Severity Reaction Status Date / Time No Known Allergies Allergy Verified 09/09/18 13:23 Home Meds: Home Meds Albuterol [Proair HFA] 2 puff INH BID 09/27/14 [History] Budesonide/Formoterol Fumarate [Symbicort 80-4.5 Mcg Inhaler] 1 puff INH BID [History] Citalopram [Citalopram HBr] 20 mg PO DAILY 09/27/14 [History] Levothyroxine [Synthroid] 75 mcg PO DAILY 09/27/14 [History] Simvastatin 40 mg PO BEDTIME 09/27/14 [History] Multivitamin [Multi-Day Vitamins] 1 tab PO DAILY 03/15/15 [History] Alendronate Sodium 70 mg PO .WEEKLY 02/07/18 [History] Rivaroxaban [Xarelto] 20 mg PO BEDTIME 09/09/18 [History] Past Medical History HEENT History: Reports: Impaired Vision Other HEENT History: wears corrective lenses Cardiovascular History: Reports: High Cholesterol Respiratory History: Reports: COPD Gastrointestinal History: Reports: None Genitourinary History: Reports: None [employer]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: Musculoskeletal History: Reports: Arthritis Neurological History: Reports: CVA (Ischemic, 02/2018.) Psychiatric History: Reports: Anxiety Endocrine/Metabolic History: Reports: Hypothyroidism Hematologic History: Reports: None Immunologic History: Reports: None Oncologic (Cancer) History: Reports: None Dermatologic History: Reports: None - Infectious Disease History Infectious Disease History: Reports: Measles, Mumps - Past Surgical History HEENT Surgical History: Reports: Eye Surgery, Tonsillectomy Other HEENT Surgeries/Procedures: patient does not know name of procedure Cardiovascular Surgical History: Reports: None Respiratory Surgical History: Reports: None GI Surgical History: Reports: None Female Surgical History: Reports: Hysterectomy Endocrine Surgical History: Reports: None Neurological Surgical History: Reports: None Musculoskeletal Surgical History: Reports: None Social & Family History - Family History Family Medical History: Noncontributory - Tobacco Use Smoking Status *Q: Former Smoker - Caffeine Use Caffeine Use: Reports: Coffee - Living Situation & Occupation Living situation: Reports: , Alone Occupation: Retired ED ROS GENERAL - Review of Systems Review Of Systems: ROS reveals no pertinent complaints other than HPI. ED EXAM, GENERAL - Physical Exam Exam: See Below Exam Limited By: No Limitations General Appearance: Alert, WD/WN, No Apparent Distress Eye Exam: Bilateral Eye: EOMI, Normal Inspection, PERRL Ears: Hearing Loss (Chronic/stable) Nose: Normal Inspection, Normal Mucosa, No Blood Throat/Mouth: Normal Inspection, Normal Lips, Normal Teeth, Normal Gums, Normal Oropharynx, Normal Voice, No Airway Compromise Head: Atraumatic, Normocephalic Neck: Normal Inspection, Supple, Non-Tender, Full Range of Motion. No: Lymphadenopathy (L), Lymphadenopathy (R) Respiratory/Chest: No Respiratory Distress, No Accessory Muscle Use, Chest Non- Tender, Rhonchi (mild bibasilar), Other (Occasional harsh moist cough). No: Crackles, Rales, Wheezing Cardiovascular: Normal Peripheral Pulses, No Edema, No JVD, Irregularly Irregular GI/Abdominal: Normal Bowel Sounds, Soft, Non-Tender, No Distention Back Exam: Normal Inspection Extremities: Normal Inspection, Normal Range of Motion, Non-Tender, Normal Capillary Refill, No Pedal Edema Neurological: Alert, Oriented, CN II-XII Intact, Normal Cognition, Normal Gait, No Motor/Sensory Deficits Psychiatric: Normal Mood Skin Exam: Warm, Dry, Intact, Normal Color, No Rash EKG INTERPRETATION EKG Date: 09/09/18 Time: 13:43 Rhythm: A-Fib Rate (Beats/Min): 127 Richards: Normal P-Wave: Present QRS: Other (Probable LVH with secondary repolarization abnormality.) ST-T: Normal QT: Prolonged (borderline) Comparison: Change From Previous EKG (Previous EKGs show SR, no prior A-fib that I can find on prior studies.) Course - Vital Signs Last Recorded V/S: Last Vital Signs Temp 36.3 C 09/09/18 13:28 Pulse 52 L 09/09/18 13:28 Resp 22 H 09/09/18 13:28 BP 137/90 09/09/18 13:28 Pulse Ox 96 09/09/18 13:28 - Orders/Labs/Meds Orders: Active Orders 24 hr Category Date Time Status EKG 12 Lead [EKG Documentation Completion] [] STAT Care 09/09/18 13:50 Active Peripheral IV Care [] . DIRECTED Care 09/09/18 14:28 Active Sodium Chloride 0.9% [Saline Flush] Med 09/09/18 14:28 Active 10 ml FLUSH ASDIRECTED PRN Peripheral IV Insertion Adult [OM.PC] Stat Oth 09/09/18 14:27 Ordered Medication Orders Sodium Chloride (Saline Flush) 10 ml FLUSH ASDIRECTED PRN PRN Reason: Keep Vein Open Last Admin: 09/09/18 14:48 Dose: 10 ml Labs: Laboratory Tests 09/09/18 09/09/18 09/09/18 Range/Units 13:58 13:58 13:58 WBC 8.0 (5.0-10.0) 10^3/uL RBC 4.23 (4.2-5.4) 10^6/uL Hgb 13.5 (12.0-16.0) g/dL Hct 39.8 (37.0-47.0) % MCV 94.1 (80-100) fL MCH 31.9 (27.0-34.0) pg MCHC 33.9 (33.0-35.0) g/dL Plt Count 239 (150-450) 10^3/uL Neut % (Auto) 64.3 (42.2-75.2) % Lymph % (Auto) 24.5 (20.5-50.1) % [place] % (Auto) 10.5 H (2-8) % Eos % (Auto) 0.6 L (1.0-3.0) % Baso % (Auto) 0.1 (0.0-1.0) % Sodium 136 (135-145) mmol/L Potassium 3.8 (3.6-5.0) mmol/L Chloride 99 L (101-111) mmol/L Carbon Dioxide 24.0 (21.0-31.0) mmol/L Anion Gap 16.8 BUN 22 H (7-18) mg/dL Creatinine 1.1 (0.6-1.3) mg/dL Est Cr Clr Drug Dosing 29.94 mL/min Estimated GFR (MDRD) 47 BUN/Creatinine Ratio 20.00 Glucose 98 (74-105) mg/dL Calcium 9.0 (8.4-10.2) mg/dl Magnesium 2.0 (1.8-2.5) mg/dL Total Bilirubin 0.5 (0.2-1.0) mg/dL AST 18 (10-42) IU/L ALT 15 (10-60) IU/L Alkaline Phosphatase 56 (42-121) IU/L Creatine Kinase 53 (26-174) IU/L Creatine Kinase Index 4.9 H (0-2.4) % CK-MB (CK-2) 2.60 (0.4-4.7) ng/mL Troponin I 0.02 (0.00-0.02) ng/ml B-Natriuretic Peptide 387 H (0-100) pg/ml Total Protein 6.7 (6.7-8.2) g/dl Albumin 3.8 (3.2-5.5) g/dl Globulin 2.9 Albumin/Globulin Ratio 1.31 TSH, Ultra Sensitive 0.83 (0.45-5.33) uIu/mL Meds: Medications Generic Name Dose Route Start Last Admin Trade Name Freq PRN Reason Stop Dose Admin Sodium Chloride 10 ml 09/09/18 14:28 09/09/18 14:48 Saline Flush FLUSH 10 ml ASDIRECTED PRN Administration Keep Vein Open - Radiology Interpretation Free Text/Narrative:: [facility] Final Radiology Report Call: [phone] assistance Online chat: [email or web address] Name: CHARLIE MICHAELS Age: 88Years F Date: 09/09/2018 SSN: -- : [id number] Study: XR CHEST 2 VIEWS Requesting Physician: LEANN BRADLEY Images: 2 Addl Studies: Provided Clinical History: sputum production Contrast: Contrast Medium: Contrast Amount: Contrast Method: CONFIDENTIALITY STATEMENT This report is intended only for use by the referring physician, and only in accordance with law. If you received this in error, call [phone]. Page 1 of 1 EXAM: XR Chest, 2 Views EXAM DATE/TIME: 09/09/2018 1:39 PM CLINICAL HISTORY: 88 years old, female; Signs and symptoms; Cough; Additional info: Sputum production TECHNIQUE: Imaging protocol: XR of the chest, 2 views. COMPARISON: CR Chest 2V 07/06/2016 1:45 PM FINDINGS: Lungs: The lungs are hyperinflated consistent with emphysema/COPD. There is no acute infiltrate or consolidation. Pleural space: Unremarkable. No pleural effusion. No pneumothorax. Heart/Mediastinum: The heart is enlarged. There is no vascular congestion. 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 IMPRESSION: No acute chest disease or significant interval change. Thank you for allowing us to participate in the care of your patient. Dictated and Authenticated by: Ramez Lynn MD 09/09/2018 2:32 PM Central Time ([place] & [place]) - Re-Assessments/Exams Free Text/Narrative Re-Assessment/Exam: 09/09/18 15:16 I find no Hx of A-fib on prior EKGs or old records. Plan to admit pt to Dr. Serrato for further evaluation and monitoring. Departure - Departure Time of Disposition: 15:15 (admit to Dr. Serrato) Disposition: Admitted As Inpatient 65 Condition: Fair Clinical Impression: New onset atrial fibrillation, Near syncope, Cough, History of CVA ( cerebrovascular accident) without residual deficits, History of COPD - Discharge Information *PRESCRIPTION DRUG MONITORING PROGRAM REVIEWED*: No *COPY OF PRESCRIPTION DRUG MONITORING REPORT IN PATIENT BONNIE: No Forms: ED Department Discharge - My Orders Last 24 Hours: My Active Orders 09/09/18 13:50 EKG 12 Lead [EKG Documentation Completion] [RC] STAT 09/09/18 14:27 Peripheral IV Insertion Adult [OM.PC] Stat 09/09/18 14:28 Peripheral IV Care [RC] . DIRECTED Sodium Chloride 0.9% [Saline Flush] 10 ml FLUSH ASDIRECTED PRN - Assessment/Plan Last 24 Hours: My Active Orders 09/09/18 13:50 EKG 12 Lead [EKG Documentation Completion] [RC] STAT 09/09/18 14:27 Peripheral IV Insertion Adult [OM.PC] Stat 09/09/18 14:28 Peripheral IV Care [RC] . DIRECTED Sodium Chloride 0.9% [Saline Flush] 10 ml FLUSH ASDIRECTED PRN I have read and agree with the documentation that has been completed regarding this visit. By signing this record, I attest that the documentation was completed in my physical presence and is an accurate record of the encounter.
[2018-09-09] MEDS ORDERED: Acetaminophen 325 MG Tab PO PRN (17:05)
[2018-09-09] MEDS ORDERED: Zolpidem 5 MG Tab PO PRN (17:05)
--- NOTE | 2018-09-09 17:14 | PCM.HP ---
H&P History of Present Illness - General Date of Service: 09/09/18 Admit Problem/Dx: Admission Diagnosis/Problem Admission Diagnosis/Problem Near syncope - History of Present Illness Initial Comments - Free Text/Narative: 88-year-old with a history of COPD, atrial fibrillation, ischemic stroke, on chronic anticoagulation, dyslipidemia. The patient developed cough, clear secretion. She lives in a basic care community with exposure to others. No associated shortness of breath, no fever, no chest pain, She came to the emergency room complaining of lightheadedness with severe coughing episodes. She was noted to have atrial fibrillation. - Related Data Allergies/Adverse Reactions: Allergies Allergy/AdvReac Type Severity Reaction Status Date / Time No Known Allergies Allergy Verified 09/09/18 13:23 Home Medications: Home Meds Albuterol [Proair HFA] 2 puff INH BID 09/27/14 [History] Budesonide/Formoterol Fumarate [Symbicort 80-4.5 Mcg Inhaler] 1 puff INH BID [History] Citalopram [Citalopram HBr] 20 mg PO DAILY 09/27/14 [History] Levothyroxine [Synthroid] 75 mcg PO DAILY 09/27/14 [History] Simvastatin 40 mg PO BEDTIME 09/27/14 [History] Multivitamin [Multi-Day Vitamins] 1 tab PO DAILY 03/15/15 [History] Alendronate Sodium 70 mg PO .WEEKLY 02/07/18 [History] Rivaroxaban [Xarelto] 20 mg PO BEDTIME 09/09/18 [History] Past Medical History HEENT History: Reports: Impaired Vision Other HEENT History: wears corrective lenses Cardiovascular History: Reports: High Cholesterol Respiratory History: Reports: COPD Gastrointestinal History: Reports: None Genitourinary History: Reports: None [employer]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: Musculoskeletal History: Reports: Arthritis Neurological History: Reports: CVA Psychiatric History: Reports: Anxiety Endocrine/Metabolic History: Reports: Hypothyroidism Hematologic History: Reports: None Immunologic History: Reports: None Oncologic (Cancer) History: Reports: None Dermatologic History: Reports: None - Infectious Disease History Infectious Disease History: Reports: None - Past Surgical History HEENT Surgical History: Reports: Eye Surgery, Tonsillectomy Other HEENT Surgeries/Procedures: patient does not know name of procedure Cardiovascular Surgical History: Reports: None Respiratory Surgical History: Reports: None GI Surgical History: Reports: None Female Surgical History: Reports: Hysterectomy Endocrine Surgical History: Reports: None Neurological Surgical History: Reports: None Musculoskeletal Surgical History: Reports: None Social & Family History - Family History Family Medical History: Noncontributory - Tobacco Use Smoking Status *Q: Former Smoker Used Tobacco, but Quit: Yes Month/Year Tobacco Last Used: 1993 Second Hand Smoke Exposure: No - Caffeine Use Caffeine Use: Reports: Coffee - Recreational Drug Use Recreational Drug Use: No - Living Situation & Occupation Living situation: Reports: , Alone Occupation: Retired H&P Review of Systems - Review of Systems: Review Of Systems: See Below General: Denies: Fever, Chills Pulmonary: Reports: Cough, Sputum. Denies: Shortness of Breath, Wheezing Cardiovascular: Denies: Chest Pain, Edema Gastrointestinal: Denies: Abdominal Pain Genitourinary: Denies: Dysuria Psychiatric: Denies: Confusion Neurological: Reports: Dizziness (When coughing) Exam - Exam Exam: See Below - Vital Signs Vital Signs: Last Vital Signs Temp 37.2 C 09/09/18 15:49 Pulse 131 H 09/09/18 15:49 Resp 16 09/09/18 15:49 BP 128/65 09/09/18 15:49 Pulse Ox 98 09/09/18 15:49 Weight: 69.989 kg - Exam General: Alert, Oriented Neck: Supple Lungs: Clear to Auscultation, Normal Respiratory Effort Cardiovascular: Irregular Rhythm GI/Abdominal Exam: Normal Bowel Sounds, Soft, Non-Tender Extremities: No Pedal Edema - Patient Data Lab Results Last 24 hrs: Laboratory Results - last 24 hr 09/09/18 09/09/18 09/09/18 Range/Units 13:58 13:58 13:58 WBC 8.0 (5.0-10.0) 10^3/uL RBC 4.23 (4.2-5.4) 10^6/uL Hgb 13.5 (12.0-16.0) g/dL Hct 39.8 (37.0-47.0) % MCV 94.1 (80-100) fL MCH 31.9 (27.0-34.0) pg MCHC 33.9 (33.0-35.0) g/dL Plt Count 239 (150-450) 10^3/uL Neut % (Auto) 64.3 (42.2-75.2) % Lymph % (Auto) 24.5 (20.5-50.1) % [place] % (Auto) 10.5 H (2-8) % Eos % (Auto) 0.6 L (1.0-3.0) % Baso % (Auto) 0.1 (0.0-1.0) % Sodium 136 (135-145) mmol/L Potassium 3.8 (3.6-5.0) mmol/L Chloride 99 L (101-111) mmol/L Carbon Dioxide 24.0 (21.0-31.0) mmol/L Anion Gap 16.8 BUN 22 H (7-18) mg/dL Creatinine 1.1 (0.6-1.3) mg/dL Est Cr Clr Drug Dosing 29.94 mL/min Estimated GFR (MDRD) 47 BUN/Creatinine Ratio 20.00 Glucose 98 (74-105) mg/dL Calcium 9.0 (8.4-10.2) mg/dl Magnesium 2.0 (1.8-2.5) mg/dL Total Bilirubin 0.5 (0.2-1.0) mg/dL AST 18 (10-42) IU/L ALT 15 (10-60) IU/L Alkaline Phosphatase 56 (42-121) IU/L Creatine Kinase 53 (26-174) IU/L Creatine Kinase Index 4.9 H (0-2.4) % CK-MB (CK-2) 2.60 (0.4-4.7) ng/mL Troponin I 0.02 (0.00-0.02) ng/ml B-Natriuretic Peptide 387 H (0-100) pg/ml Total Protein 6.7 (6.7-8.2) g/dl Albumin 3.8 (3.2-5.5) g/dl Globulin 2.9 Albumin/Globulin Ratio 1.31 TSH, Ultra Sensitive 0.83 (0.45-5.33) uIu/mL Result Diagrams: 09/09/18 13:58 09/09/18 13:58 - Problem List (1) Atrial fibrillation SNOMED Code(s): 61972769 ICD Code: I48.91 - UNSPECIFIED ATRIAL FIBRILLATION Status: Acute Current Visit: Yes (2) Dyslipidemia SNOMED Code(s): 305172818 ICD Code: E78.5 - HYPERLIPIDEMIA, UNSPECIFIED Status: Acute Current Visit : No (3) History of COPD SNOMED Code(s): 884844405 ICD Code: Z87.09 - PERSONAL HISTORY OF OTHER DISEASES OF THE RESPIRATORY SYSTEM Status: Acute Current Visit: No (4) History of CVA (cerebrovascular accident) without residual deficits Status: Acute Current Visit: No (5) Hypothyroidism SNOMED Code(s): 06327344 ICD Code: E03.9 - HYPOTHYROIDISM, UNSPECIFIED Status: Acute Current Visit : No (6) Near syncope SNOMED Code(s): 863393144 ICD Code: R55 - SYNCOPE AND COLLAPSE Status: Acute Current Visit: No Problem List Initiated/Reviewed/Updated: Yes Orders Last 24hrs: Active Orders 24 hr Category Date Time Status Patient Status [ADT] Routine ADT 09/09/18 17:05 Ordered Antiembolic Devices [RC] PER UNIT ROUTINE Care 09/09/18 17:08 Ordered EKG 12 Lead [EKG Documentation Completion] [RC] STAT Care 09/09/18 13:50 Active Oxygen Therapy [RC] PRN Care 09/09/18 17:05 Ordered Peripheral IV Care [RC] . DIRECTED Care 09/09/18 14:28 Active Telemetry Monitoring [Cardiac Monitoring] [RC] . Care 09/09/18 17:02 Active DIRECTED Up With Assistance [RC] ASDIRECTED Care 09/09/18 17:05 Ordered VTE/DVT Education [RC] PER UNIT ROUTINE Care 09/09/18 17:05 Ordered Vital Signs [RC] Q4H Care 09/09/18 17:05 Ordered Regular Diet [DIET] Diet 09/09/18 Dinner Ordered BASIC METABOLIC PANEL,BMP [CHEM] AM Lab 09/10/18 05:11 Ordered MAGNESIUM [CHEM] AM Lab 09/10/18 05:11 Ordered PHOSPHORUS [CHEM] AM Lab 09/10/18 05:11 Ordered Acetaminophen [Tylenol] Med 09/09/18 17:05 Ordered 650 mg PO Q4H PRN Albuterol [Proventil HFA] Med 09/09/18 21:00 Ordered DOSE gm INH BID Budesonide/Formoterol Fumarate [Symbicort 80-4.5 Mcg Med 09/09/18 21:00 Ordered Inhaler] 1 puff INH BID Citalopram [Celexa] Med 09/10/18 09:00 Ordered 20 mg PO DAILY Levothyroxine [Synthroid] Med 09/10/18 09:00 Ordered 75 mcg PO DAILY Multivitamin [Multi-Day Vitamins] Med 09/10/18 09:00 Ordered 1 tab PO DAILY Rivaroxaban [Xarelto] Med 09/09/18 21:00 Ordered 20 mg PO BEDTIME Simvastatin [Zocor] Med 09/09/18 21:00 Ordered 40 mg PO BEDTIME Sodium Chloride 0.9% [Saline Flush] Med 09/09/18 14:28 Active 10 ml FLUSH ASDIRECTED PRN Sodium Chloride 0.9% [Saline Flush] Med 09/09/18 17:05 Ordered 10 ml FLUSH ASDIRECTED PRN Zolpidem [Ambien] Med 09/09/18 17:05 Ordered 5 mg PO BEDTIME PRN guaiFENesin [Robitussin] Med 09/09/18 18:00 Ordered 200 mg PO TID Antiembolic Hose [OM.PC] Per Unit Routine Oth 09/09/18 17:07 Ordered Peripheral IV Insertion Adult [OM.PC] Stat Oth 09/09/18 14:27 Ordered Saline Lock Insert [OM.PC] Routine Oth 09/09/18 17:05 Ordered Resuscitation Status Routine Resus Stat 09/09/18 17:05 Ordered Medication Orders Acetaminophen (Tylenol) 650 mg PO Q4H PRN PRN Reason: Pain (Mild 1-3)/fever Albuterol (Proventil Hfa) gm INH BID CHUY Citalopram Hydrobromide (Celexa) 20 mg PO DAILY CHUY Guaifenesin (Robitussin) 200 mg PO TID CHUY Levothyroxine Sodium (Synthroid) 75 mcg PO DAILY CHUY Non-Formulary Medication (Budesonide/Formoterol Fumarate [Symbicort 80-4.5 Mcg Inhaler]) 1 puff INH BID CHUY Non-Formulary Medication (Multivitamin [Multi-Day Vitamins]) 1 tab PO DAILY CHUY Non-Formulary Medication (Rivaroxaban [Xarelto]) 20 mg PO BEDTIME CHUY Simvastatin (Zocor) 40 mg PO BEDTIME CHUY Sodium Chloride (Saline Flush) 10 ml FLUSH ASDIRECTED PRN PRN Reason: Keep Vein Open Last Admin: 09/09/18 14:48 Dose: 10 ml Sodium Chloride (Saline Flush) 10 ml FLUSH ASDIRECTED PRN PRN Reason: Keep Vein Open Zolpidem Tartrate (Ambien) 5 mg PO BEDTIME PRN PRN Reason: Sleep Assessment/Plan Comment:: 88-year-old with a history of dyslipidemia, COPD, atrial fibrillation, ischemic stroke on anticoagulation with xarelto. Presented with cough There is no significant fever, no leukocytosis, no discolored sputum. Will treat symptomatically with Robitussin. Hold antibiotic. Continue treatment of COPD with Symbicort, albuterol Near syncopal episodes Might relate to cough syncope, uncontrolled atrial fibrillation rate We'll monitor on telemetry Atrial fibrillation History of hypothyroidism, TSH normal Monitor heart rate The patient is not on rate control agent Continue current dose of Synthroid Continue anticoagulation with Xarelto Dyslipidemia Treat with Zocor
[2018-09-09] MEDS: Metoprolol Tartrate 25 MG Tab PO SCH (18:40)
[2018-09-09] MEDS: guaiFENesin 100 MG/5 ML Soln 5 ML UD Cup PO SCH ×2 (18:41→21:43)
[2018-09-09] MEDS ORDERED: Simvastatin 40 MG Tab **OWN MED PO SCH (21:00)
[2018-09-09] MEDS ORDERED: XARELTO 20 MG PO SCH (21:00)
[2018-09-09] MEDS: Albuterol 6.7 GM Inhaler **OWN MED INH SCH (21:41)
[2018-09-09] MEDS: SYMBICORT INH SCH (21:42)
[2018-09-10] MEDS ORDERED: Levothyroxine 75 MCG Tab **OWN MED PO SCH (06:00)
[2018-09-10 06:35] LABS: ANION GAP 14.8
[2018-09-10 08:15] VITALS: BP 106/79
[2018-09-10] MEDS: SYMBICORT INH SCH (08:44)
[2018-09-10] MEDS: Albuterol 6.7 GM Inhaler **OWN MED INH SCH (08:44)
[2018-09-10] MEDS: guaiFENesin 100 MG/5 ML Soln 5 ML UD Cup PO SCH (08:45)
[2018-09-10] MEDS: Metoprolol Tartrate 25 MG Tab PO SCH (08:49)
[2018-09-10] MEDS ORDERED: Citalopram 20 MG Tab **OWN MED PO SCH (09:00)
[2018-09-10] MEDS ORDERED: Simvastatin 40 MG Tab **OWN MED PO SCH (09:00)
[2018-09-10] MEDS ORDERED: Multivitamins, Therapeutic with Minerals Tab PO SCH (09:00)
--- NOTE | 2018-09-10 10:17 | PCM.DCSUM1 ---
Discharge Summary - Hospital Course Free Text/Narrative:: 88-year-old with a history of dyslipidemia, COPD, atrial fibrillation, ischemic stroke on anticoagulation with xarelto. Presented with cough There is no significant fever, no leukocytosis, no discolored sputum. Will treat symptomatically with Robitussin. Hold antibiotic. Continue treatment of COPD with Symbicort, albuterol cough might relate to arrythmia - monitored on tele - noted rapid afib Atrial fibrillation History of hypothyroidism, TSH normal for RVR started Metoprolol Continue current dose of Synthroid Continue anticoagulation with Xarelto Dyslipidemia Treat with Zocor f/up with her PMD in a few days Diagnosis: Stroke: No - Discharge Data Discharge Date: 09/10/18 Discharge Disposition: Home, Self-Care 01 Condition: Good - Discharge Diagnosis/Problem(s) (1) Atrial fibrillation SNOMED Code(s): 47614274 ICD Code: I48.91 - UNSPECIFIED ATRIAL FIBRILLATION Status: Acute Current Visit: Yes (2) Dyslipidemia SNOMED Code(s): 914818064 ICD Code: E78.5 - HYPERLIPIDEMIA, UNSPECIFIED Status: Acute Current Visit : No (3) History of COPD SNOMED Code(s): 294144679 ICD Code: Z87.09 - PERSONAL HISTORY OF OTHER DISEASES OF THE RESPIRATORY SYSTEM Status: Acute Current Visit: No (4) History of CVA (cerebrovascular accident) without residual deficits Status: Acute Current Visit: No (5) Hypothyroidism SNOMED Code(s): 71569045 ICD Code: E03.9 - HYPOTHYROIDISM, UNSPECIFIED Status: Acute Current Visit : No (6) Near syncope SNOMED Code(s): 619260153 ICD Code: R55 - SYNCOPE AND COLLAPSE Status: Acute Current Visit: No - Discharge Plan *PRESCRIPTION DRUG MONITORING PROGRAM REVIEWED*: No *COPY OF PRESCRIPTION DRUG MONITORING REPORT IN PATIENT BONNIE: No Prescriptions/Med Rec: guaiFENesin [Robitussin] 200 mg PO TID PRN #250 ml PRN Reason: Cough Metoprolol Tartrate [Lopressor] 12.5 mg PO BID #60 tablet Home Medications: Home Meds Albuterol [Proair HFA] 2 puff INH BID 09/27/14 [History] Budesonide/Formoterol Fumarate [Symbicort 80-4.5 Mcg Inhaler] 2 puff INH BID [History] Citalopram [Citalopram HBr] 20 mg PO DAILY 09/27/14 [History] Levothyroxine [Synthroid] 75 mcg PO DAILY 09/27/14 [History] Simvastatin 40 mg PO BEDTIME 09/27/14 [History] Multivitamin [Multi-Day Vitamins] 1 tab PO DAILY 03/15/15 [History] Alendronate Sodium 70 mg PO .WEEKLY 02/07/18 [History] Rivaroxaban [Xarelto] 20 mg PO BEDTIME 09/09/18 [History] Metoprolol Tartrate [Lopressor] 12.5 mg PO BID #60 tablet 09/10/18 [Rx] guaiFENesin [Robitussin] 200 mg PO TID PRN #250 ml 09/10/18 [Rx] Referrals: Dorothy White PA [Physician Court Manager] - (in 2-3 days) - Discharge Summary/Plan Comment DC Time >30 min.: No - General Info Date of Service: 09/10/18 - Review of Systems General: Reports: No Symptoms. Denies: Fever, Weakness Pulmonary: Denies: Shortness of Breath Cardiovascular: Denies: Chest Pain, Palpitations Gastrointestinal: Denies: Abdominal Pain Neurological: Denies: Confusion, Dizziness - Patient Data Vitals - Most Recent: Last Vital Signs Temp 36.6 C 09/10/18 08:00 Pulse 98 09/10/18 08:49 Resp 18 09/10/18 08:00 BP 106/79 09/10/18 08:49 Pulse Ox 98 09/10/18 08:00 Weight - Most Recent: 69.989 kg Lab Results - Last 24 hrs: Laboratory Results - last 24 hr 09/09/18 09/09/18 09/09/18 Range/Units 13:58 13:58 13:58 WBC 8.0 (5.0-10.0) 10^3/uL RBC 4.23 (4.2-5.4) 10^6/uL Hgb 13.5 (12.0-16.0) g/dL Hct 39.8 (37.0-47.0) % MCV 94.1 (80-100) fL MCH 31.9 (27.0-34.0) pg MCHC 33.9 (33.0-35.0) g/dL Plt Count 239 (150-450) 10^3/uL Neut % (Auto) 64.3 (42.2-75.2) % Lymph % (Auto) 24.5 (20.5-50.1) % [place] % (Auto) 10.5 H (2-8) % Eos % (Auto) 0.6 L (1.0-3.0) % Baso % (Auto) 0.1 (0.0-1.0) % Sodium 136 (135-145) mmol/L Potassium 3.8 (3.6-5.0) mmol/L Chloride 99 L (101-111) mmol/L Carbon Dioxide 24.0 (21.0-31.0) mmol/L Anion Gap 16.8 BUN 22 H (7-18) mg/dL Creatinine 1.1 (0.6-1.3) mg/dL Est Cr Clr Drug Dosing 29.94 mL/min Estimated GFR (MDRD) 47 BUN/Creatinine Ratio 20.00 Glucose 98 (74-105) mg/dL Calcium 9.0 (8.4-10.2) mg/dl Phosphorus (2.5-4.6) mg/dL Magnesium 2.0 (1.8-2.5) mg/dL Total Bilirubin 0.5 (0.2-1.0) mg/dL AST 18 (10-42) IU/L ALT 15 (10-60) IU/L Alkaline Phosphatase 56 (42-121) IU/L Creatine Kinase 53 (26-174) IU/L Creatine Kinase Index 4.9 H (0-2.4) % CK-MB (CK-2) 2.60 (0.4-4.7) ng/mL Troponin I 0.02 (0.00-0.02) ng/ml B-Natriuretic Peptide 387 H (0-100) pg/ml Total Protein 6.7 (6.7-8.2) g/dl Albumin 3.8 (3.2-5.5) g/dl Globulin 2.9 Albumin/Globulin Ratio 1.31 TSH, Ultra Sensitive 0.83 (0.45-5.33) uIu/mL 09/10/18 Range/Units 05:50 WBC (5.0-10.0) 10^3/uL RBC (4.2-5.4) 10^6/uL Hgb (12.0-16.0) g/dL Hct (37.0-47.0) % MCV (80-100) fL MCH (27.0-34.0) pg MCHC (33.0-35.0) g/dL Plt Count (150-450) 10^3/uL Neut % (Auto) (42.2-75.2) % Lymph % (Auto) (20.5-50.1) % [place] % (Auto) (2-8) % Eos % (Auto) (1.0-3.0) % Baso % (Auto) (0.0-1.0) % Sodium 139 (135-145) mmol/L Potassium 3.8 (3.6-5.0) mmol/L Chloride 103 (101-111) mmol/L Carbon Dioxide 25.0 (21.0-31.0) mmol/L Anion Gap 14.8 BUN 20 H (7-18) mg/dL Creatinine 1.0 (0.6-1.3) mg/dL Est Cr Clr Drug Dosing 32.93 mL/min Estimated GFR (MDRD) 52 BUN/Creatinine Ratio Glucose 93 (74-105) mg/dL Calcium 8.7 (8.4-10.2) mg/dl Phosphorus 4.1 (2.5-4.6) mg/dL Magnesium 2.0 (1.8-2.5) mg/dL Total Bilirubin (0.2-1.0) mg/dL AST (10-42) IU/L ALT (10-60) IU/L Alkaline Phosphatase (42-121) IU/L Creatine Kinase (26-174) IU/L Creatine Kinase Index (0-2.4) % CK-MB (CK-2) (0.4-4.7) ng/mL Troponin I (0.00-0.02) ng/ml B-Natriuretic Peptide (0-100) pg/ml Total Protein (6.7-8.2) g/dl Albumin (3.2-5.5) g/dl Globulin Albumin/Globulin Ratio TSH, Ultra Sensitive (0.45-5.33) uIu/mL Med Orders - Current: Current Medications Acetaminophen (Tylenol) 650 mg PO Q4H PRN PRN Reason: Pain (Mild 1-3)/fever Albuterol (Proventil Hfa) 0 gm INH BID [facility] Last Admin: 09/10/18 08:44 Dose: 2 puff Citalopram Hydrobromide (Celexa) 20 mg PO DAILY [facility] Last Admin: 09/10/18 08:47 Dose: 20 mg Guaifenesin (Robitussin) 200 mg PO TID [facility] Last Admin: 09/10/18 08:45 Dose: 200 mg Levothyroxine Sodium (Levothyroxine) 75 mcg PO DAILY@0600 [facility] Last Admin: 09/10/18 06:10 Dose: 75 mcg Metoprolol Tartrate (Lopressor) 12.5 mg PO BID [facility] Last Admin: 09/10/18 08:49 Dose: 12.5 mg Multivitamins/Minerals (Vitamins And Minerals) 1 tab PO DAILY [facility] Last Admin: 09/10/18 08:51 Dose: 1 tab Symbicort 80/4.5 Inhaler Own Med Nf 0 puff INH BID [facility] Last Admin: 09/10/18 08:44 Dose: 2 puff Xarelto 20 Mg Own (Med Nf) 0 mg PO BEDTIME [facility] Last Admin: 09/09/18 21:42 Dose: 20 mg Simvastatin (Zocor) 40 mg PO DAILY [facility] Last Admin: 09/10/18 08:48 Dose: 40 mg Sodium Chloride (Saline Flush) 10 ml FLUSH ASDIRECTED PRN PRN Reason: Keep Vein Open Last Admin: 09/09/18 14:48 Dose: 10 ml Sodium Chloride (Saline Flush) 10 ml FLUSH ASDIRECTED PRN PRN Reason: Keep Vein Open Zolpidem Tartrate (Ambien) 5 mg PO BEDTIME PRN PRN Reason: Sleep Discontinued Medications Simvastatin (Zocor) 40 mg PO BEDTIME [facility] Last Admin: 09/09/18 21:43 Dose: Not Given - Exam General: Reports: Alert, Oriented Neck: Reports: Supple Lungs: Reports: Clear to Auscultation, Normal Respiratory Effort Cardiovascular: Reports: Irregular Rhythm. Denies: Bradycardia, Tachycardia GI/Abdominal Exam: Normal Bowel Sounds, Soft, Non-Tender Extremities: No Pedal Edema Skin: Reports: Warm, Dry Neurological: Reports: No New Focal Deficit Psy/Mental Status: Reports: Alert, Normal Affect, Normal Mood
== END 2018-09-10 10:55 | disposition home or self-care (01) ==
LOC: DL.ED 13:08 → UNDOADMOB 15:45 → DL.MS 15:45
PROVIDERS: ADMIT Internal Medicine; ATTEND Internal Medicine
DX: R05 Cough (principal); R55 Syncope and collapse; I48.91 Unspecified atrial fibrillation; E78.5 Hyperlipidemia, unspecified; E03.9 Hypothyroidism, unspecified; J44.9 Chronic obstructive pulmonary disease, unspecified; M19.90 Unspecified osteoarthritis, unspecified site; F41.9 Anxiety disorder, unspecified; Z79.01 Long term (current) use of anticoagulants; Z79.890 Hormone replacement therapy; Z79.899 Other long term (current) drug therapy
CPT/HCPCS: 36415; 71046; 80048; 80053; 82550; 82553; 83735; 83880; 84100; 84443; 84484; 85025; 93005; 99284; A9270; G0378

== ENCOUNTER 2018-10-01 16:43 | Emergency (ER) | payer MEDICARE, BC, MEDICAID ==
[2018-10-01 16:58] VITALS: BP 105/43
[2018-10-01] MEDS ORDERED: Amoxicillin/Clavulanate K 875-125 MG Tab PO ONE (18:15)
[2018-10-01] MEDS ORDERED: Lidocaine 2% Viscous Solution 15 ML Cup PO ONE (18:15)
--- NOTE | 2018-10-01 18:16 | EDM.PDOC ---
Scribed by Estefania Reza 10/01/18 [id number] for Jael Sommer NP ED HPI GENERAL MEDICAL PROBLEM - General Chief Complaint: ENT Problem Stated Complaint: VERY SORE THROAT, SEVERE PAIN Time Seen by Provider: 10/01/18 17:29 Source of Information: Reports: Patient, RN, RN Notes Reviewed History Limitations: Reports: No Limitations - History of Present Illness INITIAL COMMENTS - FREE TEXT/NARRATIVE: Patient presents to ER with complaint of a sharp pain in the right side of the throat. She states she has had a sore x2 weeks. Today it is much worse. She admits to productive cough--using cough syrup--tussin that is not helping. She denies fever, chills, nausea, vomiting, or diarrhea. She denies swallowing anything to cause the pain. Onset: Gradual Duration: Getting Worse Location: Reports: Other (throat) Quality: Reports: Ache Severity: Mild Improves with: Reports: None Worsens with: Reports: None Associated Symptoms: Reports: No Other Symptoms Throat Pain Score (Numeric/FACES): 8 - Related Data Allergies Allergy/AdvReac Type Severity Reaction Status Date / Time No Known Allergies Allergy Verified 10/01/18 16:57 Home Meds: Home Meds Albuterol [Proair HFA] 2 puff INH BID 09/27/14 [History] Budesonide/Formoterol Fumarate [Symbicort 80-4.5 Mcg Inhaler] 2 puff INH BID [History] Citalopram [Citalopram HBr] 20 mg PO DAILY 09/27/14 [History] Levothyroxine [Synthroid] 75 mcg PO DAILY 09/27/14 [History] Simvastatin 40 mg PO BEDTIME 09/27/14 [History] Multivitamin [Multi-Day Vitamins] 1 tab PO DAILY 03/15/15 [History] Alendronate Sodium 70 mg PO .WEEKLY 02/07/18 [History] Rivaroxaban [Xarelto] 20 mg PO BEDTIME 09/09/18 [History] Metoprolol Tartrate [Lopressor] 12.5 mg PO BID #60 tablet 09/10/18 [Rx] guaiFENesin [Robitussin] 200 mg PO TID PRN #250 ml 09/10/18 [Rx] Past Medical History HEENT History: Reports: Impaired Vision Other HEENT History: wears corrective lenses Cardiovascular History: Reports: High Cholesterol Respiratory History: Reports: COPD Gastrointestinal History: Reports: None Genitourinary History: Reports: None 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: Musculoskeletal History: Reports: Arthritis Neurological History: Reports: CVA Psychiatric History: Reports: Anxiety Endocrine/Metabolic History: Reports: Hypothyroidism Hematologic History: Reports: None Immunologic History: Reports: None Oncologic (Cancer) History: Reports: None Dermatologic History: Reports: None - Infectious Disease History Infectious Disease History: Reports: None - Past Surgical History Head Surgeries/Procedures: Reports: None HEENT Surgical History: Reports: Eye Surgery, Tonsillectomy Other HEENT Surgeries/Procedures: patient does not know name of procedure Cardiovascular Surgical History: Reports: None Respiratory Surgical History: Reports: None GI Surgical History: Reports: None Female Surgical History: Reports: Hysterectomy Endocrine Surgical History: Reports: None Neurological Surgical History: Reports: None Musculoskeletal Surgical History: Reports: None Social & Family History - Family History Family Medical History: Noncontributory - Tobacco Use Smoking Status *Q: Never Smoker Second Hand Smoke Exposure: No - Caffeine Use Caffeine Use: Reports: Coffee - Recreational Drug Use Recreational Drug Use: No - Living Situation & Occupation Living situation: Reports: , Alone Occupation: Retired ED ROS ENT - Review of Systems Review Of Systems: ROS reveals no pertinent complaints other than HPI. ED EXAM, ENT - Physical Exam Exam: See Below Exam Limited By: No Limitations General Appearance: Alert, WD/WN, No Apparent Distress Eye Exam: Bilateral Eye: EOMI, Normal Inspection, PERRL Ears: Normal External Exam, Normal Canal, Hearing Grossly Normal, Normal TMs Nose: Normal Inspection, Normal Mucousa, No Blood Mouth/Throat: Other (Throat erythematous difficult to visualize) Head: Atraumatic, Normocephalic Neck: Other (tender right lateral ) Respiratory/Chest: Other (diminished lung sounds) Cardiovascular: Normal Peripheral Pulses, Regular Rate, Rhythm, No Edema, No Gallop, No JVD, No Murmur, No Rub GI/Abdominal: Normal Bowel Sounds, Soft, Non-Tender, No Organomegaly, No Distention, No Abnormal Bruit, No Mass (Female) Exam: Deferred Rectal (Female) Exam: Deferred Back: Normal Inspection, Full Range of Motion Extremities: Normal Inspection, Normal Range of Motion, Non-Tender, No Pedal Edema, Normal Capillary Refill Neurological: Alert, Oriented, CN II-XII Intact, Normal Cognition, Normal Gait, Normal Reflexes, No Motor/Sensory Deficits Psychiatric: Anxious Skin: Warm, Dry, Intact, Normal Color, No Rash Lymphatic: No Adenopathy Course - Vital Signs Last Recorded V/S: Last Vital Signs Temp 96.7 F 10/01/18 16:53 Pulse 67 10/01/18 16:53 Resp 16 10/01/18 16:53 BP 105/43 L 10/01/18 16:53 Pulse Ox 100 10/01/18 16:53 - Orders/Labs/Meds Orders: Active Orders 24 hr Category Date Time Status Neck Soft Tissue [CR] Urgent Exams 10/01/18 17:38 Stop Req Soft Tissue Neck wo Cont [CT] Urgent Exams 10/01/18 17:42 Taken - Radiology Interpretation Free Text/Narrative:: Soft Tissue Neck CT wo contrast: FINDINGS: Sinuses: There is mild mucosal thickening of the paranasal sinuses. Nasopharynx: Normal. Oropharynx: Normal. No significant tonsillar enlargement. Hypopharynx: Normal. Larynx: Normal. Normal epiglottis. Retropharyngeal space: Normal. Submandibular/Parotid glands: Normal. Glands are normal in size. Thyroid: Normal. No enlarged or calcified nodules. Lymph nodes: Normal. No lymphadenopathy. Trachea: Visualized trachea is unremarkable. Lungs: Normal as visualized. Vasculature: No acute findings. Bones/joints: Multilevel degenerative changes with grade one anterolisthesis C4 on C5.. No acute fracture. Soft tissues: Normal. No significant soft tissue swelling. IMPRESSION: No acute process on noncontrast CT of the neck. Thank you for allowing us to participate in the care of your patient. Dictated and Authenticated by: Tommy Renee MD 10/01/2018 6:12 PM Central Time ([place] & [place]) See rad report Departure - Departure Time of Disposition: 18:14 Disposition: Home, Self-Care 01 Condition: Fair Clinical Impression: Pharyngitis Qualifiers: Pharyngitis/tonsillitis etiology: unspecified etiology Qualified Code(s): J02.9 - Acute pharyngitis, unspecified - Discharge Information *PRESCRIPTION DRUG MONITORING PROGRAM REVIEWED*: No *COPY OF PRESCRIPTION DRUG MONITORING REPORT IN PATIENT BONNIE: No Instructions: Pharyngitis, [id number], Sore Throat, [id number] Forms: ED Department Discharge Additional Instructions: RX: Augmentin Drink plenty of water Follow up with your primary care facility - My Orders Last 24 Hours: My Active Orders 10/01/18 17:38 Neck Soft Tissue [CR] Urgent 10/01/18 17:42 Soft Tissue Neck wo Cont [CT] Urgent - Assessment/Plan Last 24 Hours: My Active Orders 10/01/18 17:38 Neck Soft Tissue [CR] Urgent 10/01/18 17:42 Soft Tissue Neck wo Cont [CT] Urgent I have read and agree with the documentation that has been completed regarding this visit. By signing this record, I attest that the documentation was completed in my physical presence and is an accurate record of the encounter.
== END 2018-10-01 18:32 | disposition home or self-care (01) ==
LOC: DL.ED 16:43
DX: J02.9 Acute pharyngitis, unspecified (principal); E78.00 Pure hypercholesterolemia, unspecified; E03.9 Hypothyroidism, unspecified; F41.9 Anxiety disorder, unspecified; Z79.899 Other long term (current) drug therapy; Z79.01 Long term (current) use of anticoagulants
CPT/HCPCS: 70490; 99282; A9270; 99283